=== PATIENT | male | born 1955 | race Caucasian/White ===

== ENCOUNTER 2016-12-14 08:34 | Inpatient (IN) | payer BC ==
[2016-12-14] MEDS ORDERED: FAMOTIDINE 10 MG/ML VIAL IV ONE ×2 (08:54→10:20)
[2016-12-14] MEDS ORDERED: oxyCODONE HCL/ACETAMINOPHEN 1 TAB TABLET PO ONE (08:54)
[2016-12-14] MEDS ORDERED: ONDANSETRON HCL/PF 2 MG/ML VIAL IV ONE (08:54)
[2016-12-14] MEDS ORDERED: ALBUTEROL SULFATE/IPRATROPIUM 3 ML NEBU IH ONE ×2 (08:54→10:19)
--- NOTE | 2016-12-14 08:54 | ERNOTE ---
Medical Problem HPI - Narrative Date of Service: 12/14/16 - General Chief Complaint: Flu Symptoms Time Seen by Provider: 12/14/16 08:45 Source: patient Exam Limitations: no limitations - Immun/Allergies/Home Medications Immunizations: IMMUNIZATION HX History of Influenza Vaccine Yes Hx Pneumococcal Vaccination No Allergies/Adverse Reactions: Allergies No Known Allergies Allergy (Verified 12/14/16 09:43) Home Medications: HOME MEDICATIONS Albuterol Sulfate [Albuterol Sulfate 2.5 MG/0.5ML] 1 vial IH Q4H PRN 12/14/16 [ Last Taken Unknown] Albuterol Sulfate [Proventil Hfa] 6.7 gm IH BID 12/14/16 [Last Taken Unknown] - History of Present History Narrative: Patient comes due to coughing, vomiting, and R side chest pain. Patient reported that his was found with Strep and Influenza. Patient's pain get worse with coughing, moving, and breathing. Timing: constant, intermittent - get worse with coughing Severity: moderate Modifying Factors - (Improves): Present: rest Modifying Factors - (Worsens): Present: movement, other - vomiting and coughing Review of Systems - Review of Systems Constitutional: Present: recent illness, fever, chills, weakness, malaise EYE: Present: no symptoms reported ENT: Present: sore throat, throat swelling Respiratory: Present: shortness of breath, cough Cardiology: Present: chest pain - R side of chest Gastrointestinal/Abdominal: Present: nausea, vomiting Genitourinary: Present: no symptoms reported Musculoskeletal: Present: muscle pain Skin: Absent: rash Neurological: Present: no symptoms reported Endocrine: Present: no symptoms reported Hematologic/Lymphatic: Present: no symptoms reported Psych: Present: no symptoms reported All Other Systems: All systems neg except as marked - Patient's Past Medical History Patient History - Medical: No pertinent hx Patient History - Cardiac/Respiratory: Asthma Patient History - Cancer: No Hx of Cancer Patient History - Surgical Procedures: Other Patient History - Other: None - Social History Living Situations: home Abuse History: No History of abuse Psych History: No pertinent hx Alcohol Use: none Drug Use: none - Immunizations Hx Pneumococcal Vaccination: No History of Influenza Vaccine: Yes Physical Exam - Physical Exam General Appearance: Present: alert, no apparent distress. Absent: anxious, thin , cachetic Eye Exam: Normal inspection: bilateral, PERRL: bilateral, EOMI: bilateral Ears, Nose, Throat: Present: normal ENT inspection, hearing grossly normal, pharyngeal erythema Neck: Present: normal inspection, nontender Respiratory: Present: no respiratory distress, no accessory muscle use, chest tenderness - R side reproduced by palpation, expiration (prolonged), rhonchi - scattered. Absent: respiratory distress, accessory muscle use, wheezing Cardiovascular/Chest: Present: regular rate, rhythm, no murmur, normal peripheral pulses Gastrointestinal/Abdominal: Present: normal bowel sounds, nontender, nondistended, soft, no organomegaly Back Exam: Present: normal inspection, normal range of motion, no CVA tenderness , no vertebral tenderness Extremity Exam: Present: normal inspection, non-tender, no edema, normal range of motion Neurological Exam: Present: alert, oriented, normal mood/affect, no motor/ sensory deficits Skin Exam: Present: normal color, warm/dry Lymphatic Exam: Present: no adenopathy ED Progress - Date and Time Seen: Date and Time: 12/14/16 10:55 Patient at the moment is feeling better and vomiting has been controlled. Patient has found with a pneumonia and 24K WBC. Patient will be given antibiotics and will be place in hospital. 12/14/16 11:[address] Booker has been call to office. 12/14/16 11:01 Case has been accepted by Dr. Booker. - Results and Orders Patient's Lab Results:: I have reviewed the patient's lab results. Results and Orders: CBC: 24K noticed Strep: Negative CMP: Negative Trop: Negative - Vital Signs Patient's Vital Signs:: I have reviewed the patient's vital signs. Vital Signs: Vital Signs 12/14/16 08:39 Temperature 37.3 C Pulse Rate 79 Respiratory 12 Rate Blood Pressure 141/67 O2 Sat by Pulse 94 Oximetry - EKG EKG: NSR EKG read: Interp. by me EKG Comments: HR: 84, [place] is normal, No ST Elevation - X-Ray X-Ray #1 X-Ray: chest X-ray Comments: R side pneumonia reported by radiologist. - Progress/Reassessment Chief Complaint: Flu Symptoms Progress:: Improved - Transfer of Care Expected Disposition: Admit Plan - Plan Plan: Patient will be place in hospital for treatment. Departure - Departure Clinical Impression: Pneumonia Qualifiers: Pneumonia type: due to unspecified organism Laterality: right Lung location: upper lobe of lung Qualified Code(s): J18.1 - Lobar pneumonia, unspecified organism Sepsis Qualifiers: Sepsis type: sepsis due to unspecified organism Qualified Code(s): A41.9 - Sepsis, unspecified organism Disposition: [facility] Condition: Serious
[2016-12-14 09:11] LABS: Hematocrit 42.4 % (42.0-52.0); Hemoglobin 15.1 gm/dL (13.5-18.0); Mean Cell Volume 92.8 fl (78-100); Mean Corpuscular Hgb Conc 35.6 g/dl (32-36); Mean Platelet Volume 9.6 fl (6.0-9.5); Platelet Count 245 K/mm3 (150-450); Red Blood Count 4.57 M/mm3 (4.7-6.0); Red Cell Distribution Width 12.8 % (11.5-14.0); White Blood Count 24.8 K/mm3 (4.0-10.5)
[2016-12-14 09:13] LABS: Total Cells Counted 100
[2016-12-14 09:26] LABS: Band 7 % (0-2.0); Basophil 1 % (0-1); Lymphocyte 8 % (20-51); Monocyte 11 % (0-9); Neutrophil 73 % (42-75); Neutrophil # 18.1 K/mm3 (1.3-6.0)
[2016-12-14 09:28] LABS: Dohle Bodies 2+; Tear Drop Cells 1+
[2016-12-14 09:29] LABS: RBC Morphology Normal (NORMAL)
[2016-12-14 09:30] LABS: Platelet Estimate Normal (NORMAL)
[2016-12-14 09:31] LABS: ALT 19 U/L (19-67); AST 10 U/L (0-48); Albumin * 3.7 gm/dl (3.4-5.0); Alkaline Phosphatase * 72 U/L (50-170); Anion Gap 17.4 mmol/L (6.8-13.8); BUN/Creatinine Ratio 10.6 (9.0-21.6); Bilirubin, Total 1.2 mg/dL (0.0-1.1); Blood Urea Nitrogen 11 mg/dL (6-23); Ca. Corrected For Albumin 8.9 mg/dL (8.4-10.2); Carbon Dioxide 22.1 mmol/L (24-32.6); Chloride 98 mmol/L (97-106); Glucose * 171 mg/dL (70-110); Potassium 3.5 mmol/L (3.4-4.6); Sodium 134 mmol/L (132-142); Total Protein 7.8 gm/dL (6.2-8.2); Toxic Granulation 1+; Troponin I Less than 0.017 ng/ml (0.00-0.10)
[2016-12-14] MEDS ORDERED: ONDANSETRON HCL/PF 2 MG/ML VIAL ONE (10:19)
[2016-12-14] MEDS ORDERED: oxyCODONE HCL/ACETAMINOPHEN 1 TAB TABLET ONE (10:19)
[2016-12-14] MEDS ORDERED: LEVOFLOXACIN/D5W 750 MG in Premix Bag 1 BAG IV ONE (10:47)
[2016-12-14] MEDS ORDERED: OSELTAMIVIR PHOSPHATE 75 MG CAPSULE PO ONE ×2 (10:51→11:03)
[2016-12-14] MEDS: NORMAL SALINE IV SCH ×3 (11:00→18:59)
[2016-12-14] MEDS ORDERED: FLU VACC QS2016-17 36MOS UP/PF 60 MCG/0.5 ML DISP.SYRIN IM ONE (12:07)
[2016-12-14] MEDS ORDERED: LEVOFLOXACIN IV ONE (12:30)
[2016-12-14] MEDS ORDERED: D5W IV ONE (12:30)
[2016-12-14] MEDS ORDERED: AZITHROMYCIN 250 MG TABLET PO STA (14:25)
[2016-12-14] MEDS: ALBUTEROL SULFATE 2.5 MG/0.5 ML VIAL.NEB IH PRN (14:56)
[2016-12-14] MEDS ORDERED: oxyCODONE HCL/ACETAMINOPHEN 1 TAB TABLET PO PRN ×2 (15:04→20:15)
[2016-12-14] MEDS ORDERED: ACETAMINOPHEN 325 MG TABLET PO PRN (15:04)
[2016-12-14] MEDS: ENOXAPARIN SODIUM 40 MG/0.4 ML SYRG SC SCH (15:13)
[2016-12-14] MEDS: ONDANSETRON HCL/PF 2 MG/ML VIAL IV PRN (18:07)
[2016-12-14] MEDS ORDERED: KETOROLAC TROMETHAMINE 30 MG/ML VIAL IV PRN (19:58)
--- NOTE | 2016-12-14 20:08 | HP ---
<Jumana King - Last Filed: 12/14/16 21:55> Chief Complaint - Chief Complaint Date of Service: 12/14/16 Time of Service: 20:04 Chief Complaint: "Dizziness, headaches, coughing, nausea". Source of HPI-Pt; reliable, ER provider report. History of Present Illness: Mr. Rivera is a 61-yr-old [facility] pt who has no pertinent medical history and lacks PCP. Pt states that he came up with URI symptoms involving nasal congestion and drainage about 2 weeks ago. He treated his symptoms with OTC medications. Then yesterday afternoon, he just 'felt ill and thought he was having stomach flu.' He states that he developed dizziness, headaches and vomiting. He stayed in bed most of the evening and slept through the night. This morning he was not feeling any better and so he chose to come to [facility] ER. He denies fevers, but says he's had chills. He has had occasional coughing and SOB. He complaints of RT rib cage pain which radiates to the back and is worsened with inspiration and expiration. He denies abd. pain and diarrhea. During evaluation at the ED, the CXR obtained showed consolidation on RT mid lung suggestive of Pneumonia. He was found to have Leukocytosis with a WBC of 24,800 and a low grade fever of 37.6. He will be admitted under observation status for Pneumonia. - Patient's Past Medical History Patient History - Medical: No pertinent hx Patient History - Cardiac/Respiratory: Asthma Patient History - Cancer: No Hx of Cancer Patient History - Surgical Procedures: Other Patient History - Other: None - Family History Father Family History - Cardiac/Respiratory: Asthma Family History - Cancer: Prostate Sister Family History - Cardiac/Respiratory: COPD Mother Family History - Medical: No pertinent hx - Social History Living Situations: home Abuse History: No History of abuse Psych History: No pertinent hx Smoking Status: Current every day smoker Have you smoked in the past 12 months: Yes Do you dip or chew tobacco: No Smoking Start Date: 12/14/74 Patient requests Smoking Cessation Consult: No Initiate information on Smoking Cessation: No Alcohol Use: none Drug Use: none - Immunizations Hx Pneumococcal Vaccination: No History of Influenza Vaccine: Yes Review Of Systems (GEN) - Review of Systems Generalized/Overall Review: Present: Chills, Malaise. Absent: Weakness, Fever EENTM: Present: Nose Congestion. Absent: Eye Pain, Double Vision, Throat Pain Respiratory: Present: Cough, Shortness of Breath Cardiac: Absent: Chest Pain, Palpitations, Syncope Abdominal: Present: Nausea, Vomiting. Absent: Abdominal Pain, Constipation Genitourinary: Absent: Burning, Frequency, Hematuria Musculoskeletal: Present: Back Pain. Absent: Joint Pain, Joint Swelling, Muscle Pain, Neck Pain Neurological: Absent: Headache, Anxiety, Weakness Skin: Present: Dryness. Absent: Lesions Endocrine: Present: Intolerance to Heat. Absent: Flushing, Increased Thirst Misc: All systems neg except as marked Allergies/Adverse Reactions: Allergies Allergy/AdvReac Type Severity Reaction Status Date / Time No Known Allergies Allergy Verified 12/14/16 09:43 Home Medications: HOME MEDICATIONS Albuterol Sulfate [Albuterol Sulfate 2.5 MG/0.5ML] 1 vial IH Q4H PRN 12/14/16 [ Last Taken Unknown] Albuterol Sulfate [Proventil Hfa] 6.7 gm IH BID 12/14/16 [Last Taken Unknown] Exam - Exam Vital Signs: Vital Signs - Last Taken Temp 36.8 C 12/14/16 19:40 Pulse 55 L 12/14/16 19:40 Resp 20 12/14/16 19:40 BP 164/80 12/14/16 19:40 Pulse Ox 99 12/14/16 19:40 Constitutional: Present: Alert, Oriented x3, Mild distress ENT Exam: Present: normal ENT inspection. Absent: nasal congestion, nasal drainage Eye Exam: bilateral eye: normal inspection, PERRL Neck: Present: full range of motion, supple, normal inspection Back Exam: Present: normal inspection, no CVA tenderness Breasts: Present: Exam deferred Respiratory: Present: no accessory muscle use, decreased breath sounds, No wheezing Cardiovascular/Chest: Present: normal peripheral pulses, regular rate, rhythm, no edema, no murmur Abdomen: Present: Normal bowel sounds, nontender, firm /Rectal: Present: Exam deferred Extremity: Present: non-tender, normal inspection Skin Exam: Present: warm/dry, no cyanosis Lymphatic: Present: no adenopathy Neurologic: Present: no motor/sensory deficits, alert, oriented x 3, dizzy/light -headedness Appearance: Present: appropriate appearance, appropriate insight Eye contact: Present: cooperative, good eye contact, normal speech Thoughts: Present: normal thought pattern, no apparent hallucination Diagnostic Studies: Laboratory Results WBC 24.8 K/mm3 (4.0-10.5) H 12/14/16 09:00 RBC 4.57 M/mm3 (4.7-6.0) L 12/14/16 09:00 Hgb 15.1 gm/dL (13.5-18.0) 12/14/16 09:00 Hct 42.4 % (42.0-52.0) 12/14/16 09:00 MCV 92.8 fl (78-100) 12/14/16 09:00 MCH 33.0 pg (27-31) H 12/14/16 09:00 MCHC 35.6 g/dl (32-36) 12/14/16 09:00 RDW 12.8 % (11.5-14.0) 12/14/16 09:00 Plt Count 245 K/mm3 (150-450) 12/14/16 09:00 MPV 9.6 fl (6.0-9.5) H 12/14/16 09:00 Neutrophils % (Manual) 73 % (42-75) 12/14/16 09:00 Band Neuts % (Manual) 7 % (0-2.0) H 12/14/16 09:00 Lymphocytes % (Manual) 8 % (20-51) L 12/14/16 09:00 Monocytes % (Manual) 11 % (0-9) H 12/14/16 09:00 Basophils % (Manual) 1 % (0-1) 12/14/16 09:00 Neutrophils # (Manual) 18.1 K/mm3 (1.3-6.0) H 12/14/16 09:00 Lymphocytes # (Manual) 2.0 k/mm3 (1.5-3.5) 12/14/16 09:00 Monocytes # (Manual) 2.7 k/mm3 (0.0-1.0) H 12/14/16 09:00 Basophils # (Manual) 0.2 k/mm3 (0.0-0.1) H 12/14/16 09:00 Toxic Granulation 1+ 12/14/16 09:00 Toxic Vacuolation 1+ 12/14/16 09:00 Dohle Bodies 2+ 12/14/16 09:00 Platelet Estimate Normal (NORMAL) 12/14/16 09:00 RBC Morphology Normal (NORMAL) 12/14/16 09:00 Tear Drop Cells 1+ 12/14/16 09:00 Sodium 134 mmol/L (132-142) 12/14/16 09:00 Plasma Sodium 135 mmol/L (130-142) 12/14/16 09:00 Potassium 3.5 mmol/L (3.4-4.6) 12/14/16 09:00 Chloride 98 mmol/L (97-106) 12/14/16 09:00 Carbon Dioxide 22.1 mmol/L (24-32.6) L 12/14/16 09:00 Anion Gap 17.4 mmol/L (6.8-13.8) H 12/14/16 09:00 BUN 11 mg/dL (6-23) 12/14/16 09:00 Creatinine 1.04 mg/dL (0.4-1.4) 12/14/16 09:00 Est GFR (Non-Af Amer) 78 mL/min (60-130) 12/14/16 09:00 BUN/Creatinine Ratio 10.6 (9.0-21.6) 12/14/16 09:00 Random Glucose 171 mg/dL (70-110) H 12/14/16 09:00 Lactic Acid, Venous 1.5 mmol/L (0.4-2.0) 12/14/16 11:00 Calcium 9.0 mg/dL (7.9-10.9) 12/14/16 09:00 Calcium Adj for Albumin 8.9 mg/dL (8.4-10.2) 12/14/16 09:00 Total Bilirubin 1.2 mg/dL (0.0-1.1) H 12/14/16 09:00 AST 10 U/L (0-48) 12/14/16 09:00 ALT 19 U/L (19-67) 12/14/16 09:00 Alkaline Phosphatase 72 U/L (50-170) 12/14/16 09:00 Troponin I Less than 0.017 ng/ml (0.00-0.10) 12/14/16 09:00 Total Protein 7.8 gm/dL (6.2-8.2) 12/14/16 09:00 Albumin 3.7 gm/dl (3.4-5.0) 12/14/16 09:00 Influenza Type A Ag Negative (NEGATIVE) 12/14/16 10:55 Influenza Type B Ag Negative (NEGATIVE) 12/14/16 10:55 Group A Strep Rapid Negative (NEGATIVE) 12/14/16 09:00 Assessment/Plan - Assessment/Plan (1) Pneumonia Assessment: Mr. Rivera is noted to have clinical features involving: chills, Leukocytosis on CBC, Chest pain and cough. Chest imaging showed consolidation on RT mid lung. Blood and sputum cultures are pending. Rocephin & Azthromycin sufficient for now. Will check urinary antigen testing for Strep Pneumo and Legionella. Encourage cornet q 2 hrs, early mobilization, and administer Influenza & Pneumococcal Vaccine. Monitor CBC in am. Problem: Acute QualifierTitle: Pneumonia type: due to unspecified organism Laterality: right Lung location: middle lobe of lung Qualified Code(s): J18.1 - Lobar pneumonia, unspecified organism (2) Pleuritic chest pain Assessment: The EKG and Troponin was negative for ACS/IN. His pleuritic chest pain is likely related to cause CAP vs Pulmonary embolism - No sudden SOB, tachypnea or tachycardia. Will utilize prn analgesics for pain. Problem: Acute (3) Asthma Assessment: Stable- Utilize PRN Albuterol Neb Treatments. Problem: Chronic (4) Leukocytosis Assessment: Was negative for influenza screening. Lactic acid in NR. On antibiotics. CBC in am. Problem: Acute (5) Nicotine dependence Assessment: Is a current smoker-1 ppd x 40 yrs. Offer smoking cessation teaching. declines nicotine patch due to a previous rash developemt. Has nicorette gum. Problem: Chronic QualifierTitle: Nicotine product type: cigarettes <Fernando Lemus - Last Filed: 12/15/16 17:37> Immunizations: IMMUNIZATION HX History of Influenza Vaccine Yes Hx Pneumococcal Vaccination No Exam - Exam Vital Signs: Vital Signs - Last Taken Temp 36.5 C 12/15/16 14:26 Pulse 66 12/15/16 14:26 Resp 18 12/15/16 14:26 BP 158/71 12/15/16 14:26 Pulse Ox 96 12/15/16 14:26 Diagnostic Studies: Abnormal Lab Results 12/15/16 12/15/16 Range/Units 00:51 05:15 WBC 13.5 H D (4.0-10.5) K/mm3 RBC 4.03 L (4.7-6.0) M/mm3 Hgb 13.3 L (13.5-18.0) gm/dL Hct 38.3 L (42.0-52.0) % MCH 33.0 H (27-31) pg MPV 9.6 H (6.0-9.5) fl Immature Gran # (Auto) 0.06 H (0.000-0.0310) K/mm3 Neutrophils % 75.9 H (42-75.0) % Lymphocytes % 15.0 L (20-51) % Neutrophils # 10.3 H (1.3-6.0) K/mm3 Monocytes # 1.1 H (0.0-1.0) k/mm3 Potassium 3.3 L (3.4-4.6) mmol/L Carbon Dioxide 23.1 L (24-32.6) mmol/L Random Glucose 136 H (70-110) mg/dL Microbiology 12/15/16 05:16 Sputum Culture - Preliminary Expectorate Sputum Laboratory Results WBC 13.5 K/mm3 (4.0-10.5) H D 12/15/16 05:15 RBC 4.03 M/mm3 (4.7-6.0) L 12/15/16 05:15 Hgb 13.3 gm/dL (13.5-18.0) L 12/15/16 05:15 Hct 38.3 % (42.0-52.0) L 12/15/16 05:15 MCV 95.0 fl (78-100) 12/15/16 05:15 MCH 33.0 pg (27-31) H 12/15/16 05:15 MCHC 34.7 g/dl (32-36) 12/15/16 05:15 RDW 12.8 % (11.5-14.0) 12/15/16 05:15 Plt Count 193 K/mm3 (150-450) 12/15/16 05:15 MPV 9.6 fl (6.0-9.5) H 12/15/16 05:15 Immature Gran % (Auto) 0.40 % (0.001-0.429) 12/15/16 05:15 Immature Gran # (Auto) 0.06 K/mm3 (0.000-0.0310) H 12/15/16 05:15 Neutrophils % 75.9 % (42-75.0) H 12/15/16 05:15 Neutrophils % (Manual) 73 % (42-75) 12/14/16 09:00 Band Neuts % (Manual) 7 % (0-2.0) H 12/14/16 09:00 Lymphocytes % 15.0 % (20-51) L 12/15/16 05:15 Lymphocytes % (Manual) 8 % (20-51) L 12/14/16 09:00 Monocytes % 8.1 % (0.0-9) 12/15/16 05:15 Monocytes % (Manual) 11 % (0-9) H 12/14/16 09:00 Eosinophils % 0.3 % (0.0-3.0) 12/15/16 05:15 Basophils % 0.3 % (0.0-1.0) 12/15/16 05:15 Basophils % (Manual) 1 % (0-1) 12/14/16 09:00 Nucleated RBC % 0.0 k/mm3 (0-1) 12/15/16 05:15 Neutrophils # 10.3 K/mm3 (1.3-6.0) H 12/15/16 05:15 Neutrophils # (Manual) 18.1 K/mm3 (1.3-6.0) H 12/14/16 09:00 Lymphocytes # 2.0 k/mm3 (1.5-3.5) 12/15/16 05:15 Lymphocytes # (Manual) 2.0 k/mm3 (1.5-3.5) 12/14/16 09:00 Monocytes # 1.1 k/mm3 (0.0-1.0) H 12/15/16 05:15 Monocytes # (Manual) 2.7 k/mm3 (0.0-1.0) H 12/14/16 09:00 Eosinophils # 0.0 k/mm3 (0.0-0.7) 12/15/16 05:15 Basophils # (Manual) 0.2 k/mm3 (0.0-0.1) H 12/14/16 09:00 Absolute Basophils 0.0 k/mm3 (0.0-0.1) 12/15/16 05:15 Toxic Granulation 1+ 12/14/16 09:00 Toxic Vacuolation 1+ 12/14/16 09:00 Dohle Bodies 2+ 12/14/16 09:00 Platelet Estimate Normal (NORMAL) 12/14/16 09:00 RBC Morphology Normal (NORMAL) 12/14/16 09:00 Tear Drop Cells 1+ 12/14/16 09:00 Sodium 136 mmol/L (132-142) 12/15/16 00:51 Plasma Sodium 137 mmol/L (130-142) 12/15/16 00:51 Potassium 3.3 mmol/L (3.4-4.6) L 12/15/16 00:51 Chloride 103 mmol/L (97-106) 12/15/16 00:51 Carbon Dioxide 23.1 mmol/L (24-32.6) L 12/15/16 00:51 Anion Gap 13.2 mmol/L (6.8-13.8) 12/15/16 00:51 BUN 13 mg/dL (6-23) 12/15/16 00:51 Creatinine 0.81 mg/dL (0.4-1.4) 12/15/16 00:51 Est GFR (Non-Af Amer) 104 mL/min (60-130) D 12/15/16 00:51 BUN/Creatinine Ratio 16.0 (9.0-21.6) 12/15/16 00:51 Random Glucose 136 mg/dL (70-110) H 12/15/16 00:51 Lactic Acid, Venous 1.5 mmol/L (0.4-2.0) 12/14/16 11:00 Calcium 8.4 mg/dL (7.9-10.9) 12/15/16 00:51 Calcium Adj for Albumin 8.9 mg/dL (8.4-10.2) 12/14/16 09:00 Total Bilirubin 1.2 mg/dL (0.0-1.1) H 12/14/16 09:00 AST 10 U/L (0-48) 12/14/16 09:00 ALT 19 U/L (19-67) 12/14/16 09:00 Alkaline Phosphatase 72 U/L (50-170) 12/14/16 09:00 Troponin I Less than 0.017 ng/ml (0.00-0.10) 12/14/16 09:00 Total Protein 7.8 gm/dL (6.2-8.2) 12/14/16 09:00 Albumin 3.7 gm/dl (3.4-5.0) 12/14/16 09:00 Influenza Type A Ag Negative (NEGATIVE) 12/14/16 10:55 Influenza Type B Ag Negative (NEGATIVE) 12/14/16 10:55 Group A Strep Rapid Negative (NEGATIVE) 12/14/16 09:00 Assessment/Plan - Narrative Narrative: I reviewed the record and examined the patient. I personally directed all of [facility]'s care for the patient. We will give toradol routinely to help with the right sided chest pain. I estimate he will need hospitalization for at least several days. He is significantly dyspneic even at rest.
[2016-12-14] MEDS ORDERED: PNEUMOC 13-VAL CONJ-DIP CRM/PF 0.5 ML DISP.SYRIN IM ONE (20:17)
[2016-12-14] MEDS ORDERED: NICOTINE 21 MG PATC TD SCH (20:45)
[2016-12-14] MEDS: KETOROLAC TROMETHAMINE 30 MG/ML VIAL IV SCH (20:53)
[2016-12-15] MEDS: ALBUTEROL SULFATE 2.5 MG/0.5 ML VIAL.NEB IH PRN ×3 (03:39→22:47)
[2016-12-15] MEDS: KETOROLAC TROMETHAMINE 30 MG/ML VIAL IV SCH ×3 (04:34→15:36)
[2016-12-15] MEDS ORDERED: NORMAL SALINE 1,000 ML IV PRN (04:42)
[2016-12-15] MEDS: ONDANSETRON HCL/PF 2 MG/ML VIAL IV PRN (04:45)
[2016-12-15 05:23] LABS: Hematocrit 38.3 % (42.0-52.0); Hemoglobin 13.3 gm/dL (13.5-18.0); Mean Corpuscular Hgb Conc 34.7 g/dl (32-36); Mean Platelet Volume 9.6 fl (6.0-9.5); Neutrophil # 10.3 K/mm3 (1.3-6.0); Neutrophil % 75.9 % (42-75.0); Platelet Count 193 K/mm3 (150-450); Red Blood Count 4.03 M/mm3 (4.7-6.0); Red Cell Distribution Width 12.8 % (11.5-14.0); White Blood Count 13.5 K/mm3 (4.0-10.5)
[2016-12-15 05:43] LABS: Anion Gap 13.2 mmol/L (6.8-13.8); Calcium * 8.4 mg/dL (7.9-10.9); Carbon Dioxide 23.1 mmol/L (24-32.6); Potassium 3.3 mmol/L (3.4-4.6)
[2016-12-15] MEDS: NORMAL SALINE IV SCH ×4 (06:26→13:34)
--- NOTE | 2016-12-15 06:49 | PN ---
<Jumana King - Last Filed: 12/15/16 07:04> Subjective - Date and Time Seen Date: 12/15/16 Time: 06:45 Subjective Narrative: Mr. Rivera had uneventful night. Reports Toradol helps with the pleuritic pain. Vomited once in the night. Complaints of night sweats. No other issues according to nursing. Objective - Vitals Vitals: Last Vital Signs Temp 36.7 C 12/15/16 03:55 Pulse 64 12/15/16 03:55 Resp 24 H 12/15/16 03:55 BP 150/75 12/15/16 03:55 Pulse Ox 95 12/15/16 03:55 - Abnormal Lab Findings Abnormal Lab Findings: Abnormal Lab Results 12/15/16 12/15/16 Range/Units 00:51 05:15 WBC 13.5 H D (4.0-10.5) K/mm3 RBC 4.03 L (4.7-6.0) M/mm3 Hgb 13.3 L (13.5-18.0) gm/dL Hct 38.3 L (42.0-52.0) % MCH 33.0 H (27-31) pg MPV 9.6 H (6.0-9.5) fl Immature Gran # (Auto) 0.06 H (0.000-0.0310) K/mm3 Neutrophils % 75.9 H (42-75.0) % Lymphocytes % 15.0 L (20-51) % Neutrophils # 10.3 H (1.3-6.0) K/mm3 Monocytes # 1.1 H (0.0-1.0) k/mm3 Potassium 3.3 L (3.4-4.6) mmol/L Carbon Dioxide 23.1 L (24-32.6) mmol/L Random Glucose 136 H (70-110) mg/dL - Exam Constitutional: Present: Alert, Oriented x3, No distress ENT Exam: Present: normal ENT inspection, hearing grossly normal Neck: Present: full range of motion, supple, normal inspection Breasts: Present: Exam deferred Respiratory: Present: lungs clear, no accessory muscle use, No wheezing Cardiovascular/Chest: Present: normal peripheral pulses, regular rate, rhythm, no edema, no murmur Abdomen: Present: Normal bowel sounds, soft, nontender /Rectal: Present: Exam deferred Extremity: Present: normal range of motion, non-tender, normal inspection Skin Exam: Present: warm/dry, no cyanosis Lymphatic: Present: no adenopathy Neurologic: Present: no motor/sensory deficits, alert, oriented x 3 Appearance: Present: appropriate appearance, appropriate insight Eye contact: Present: cooperative, good eye contact, normal speech Thoughts: Present: normal thought pattern, no apparent hallucination Assessment/Plan - Problems/Diagnosis (1) Pneumonia Problem: Acute QualifierTitle: Pneumonia type: due to unspecified organism Laterality: right Lung location: middle lobe of lung Qualified Code(s): J18.1 - Lobar pneumonia, unspecified organism Narrative: Mr. Rivera is noted to have clinical features involving: chills, Leukocytosis on CBC, Chest pain and cough. Chest imaging showed consolidation on RT mid lung. Blood and sputum cultures are pending. Rocephin & Azthromycin sufficient for now. Will check urinary antigen testing for Strep Pneumo and Legionella. Encourage cornet q 2 hrs, early mobilization, and administer Influenza & Pneumococcal Vaccine. Monitor CBC in am. (2) Pleuritic chest pain Problem: Acute Narrative: The EKG and Troponin was negative for ACS/[place]. His pleuritic chest pain is likely related to CAP vs Pulmonary embolism - No sudden SOB, tachypnea or tachycardia. Will utilize prn analgesics for pain. (3) Asthma Problem: Chronic Narrative: Stable- Utilize PRN Albuterol Neb Treatments. (4) Leukocytosis Problem: Acute Narrative: Was negative for influenza screening. Lactic acid in NR. On antibiotics. CBC in am. (5) Nicotine dependence Problem: Chronic QualifierTitle: Nicotine product type: cigarettes Narrative: is a current smoker-1 ppd x 40 yrs. Offer smoking cessation teaching. declines nicotine patch due to a previous rash developemt. Has nicorette gum. (6) Hypokalemia Problem: Acute Narrative: Oral replenishment. BMP in am <Fernando Lemus - Last Filed: 12/15/16 17:39> Objective - Vitals Vitals: Last Vital Signs Temp 36.5 C 12/15/16 14:26 Pulse 66 12/15/16 14:26 Resp 18 12/15/16 14:26 BP 158/71 12/15/16 14:26 Pulse Ox 96 12/15/16 14:26 - Abnormal Lab Findings Abnormal Lab Findings: Abnormal Lab Results 12/15/16 12/15/16 Range/Units 00:51 05:15 WBC 13.5 H D (4.0-10.5) K/mm3 RBC 4.03 L (4.7-6.0) M/mm3 Hgb 13.3 L (13.5-18.0) gm/dL Hct 38.3 L (42.0-52.0) % MCH 33.0 H (27-31) pg MPV 9.6 H (6.0-9.5) fl Immature Gran # (Auto) 0.06 H (0.000-0.0310) K/mm3 Neutrophils % 75.9 H (42-75.0) % Lymphocytes % 15.0 L (20-51) % Neutrophils # 10.3 H (1.3-6.0) K/mm3 Monocytes # 1.1 H (0.0-1.0) k/mm3 Potassium 3.3 L (3.4-4.6) mmol/L Carbon Dioxide 23.1 L (24-32.6) mmol/L Random Glucose 136 H (70-110) mg/dL Assessment/Plan Plan Narrative: I reviewed the record and examined the patient. I personally directed Jumana King's care for the patient. He feels better, but is still significant SOB even at rest. I estimate a hospital stay of at least a few more days.
[2016-12-15] MEDS ORDERED: POTASSIUM CHLORIDE 20 MEQ TABLET.SA PO ONE (07:00)
[2016-12-15] MEDS: AZITHROMYCIN 250 MG TABLET PO SCH (10:05)
[2016-12-15] MEDS: POTASSIUM CHLORIDE 40 MEQ in NORMAL SALINE 1,000 ML IV SCH ×2 (13:17→21:19)
[2016-12-15] MEDS: ENOXAPARIN SODIUM 40 MG/0.4 ML SYRG SC SCH (15:36)
[2016-12-15] MEDS ORDERED: POLYETHYLENE GLYCOL 3350 119 GM BTL PO ONE (22:00)
[2016-12-16] MEDS: POTASSIUM CHLORIDE 40 MEQ in NORMAL SALINE 1,000 ML IV SCH ×3 (05:26→21:38)
[2016-12-16] MEDS: KETOROLAC TROMETHAMINE 30 MG/ML VIAL IV SCH ×5 (05:48→21:39)
[2016-12-16 06:01] LABS: Hematocrit 35.4 % (42.0-52.0); Hemoglobin 12.2 gm/dL (13.5-18.0); Mean Cell Volume 96.7 fl (78-100); Mean Corpuscular Hemoglobin 33.3 pg (27-31); Mean Corpuscular Hgb Conc 34.5 g/dl (32-36); Mean Platelet Volume 10.4 fl (6.0-9.5); Platelet Count 213 K/mm3 (150-450); Red Blood Count 3.66 M/mm3 (4.7-6.0); Red Cell Distribution Width 13.2 % (11.5-14.0); White Blood Count 7.5 K/mm3 (4.0-10.5)
[2016-12-16 06:07] LABS: Total Cells Counted 100
[2016-12-16 06:16] LABS: Anion Gap 12.8 mmol/L (6.8-13.8); BUN/Creatinine Ratio 17.3 (9.0-21.6); Carbon Dioxide 23.6 mmol/L (24-32.6); Estimated Creat Clear 102.6; Potassium 4.4 mmol/L (3.4-4.6)
[2016-12-16 06:50] LABS: Eosinophil 1 % (0-3); Giant Platelets Trace; Immature Granulocyte 1 (0-1); Lymphocyte 42 % (20-51); Monocyte 4 % (0-9); Neutrophil 52 % (42-75); Neutrophil # 3.9 K/mm3 (1.3-6.0); Platelet Estimate Normal (NORMAL); RBC Morphology Normal (NORMAL)
[2016-12-16] MEDS: ALBUTEROL SULFATE 2.5 MG/0.5 ML VIAL.NEB IH PRN ×3 (07:19→20:27)
[2016-12-16] MEDS: POLYETHYLENE GLYCOL 3350 119 GM BTL PO SCH (09:38)
[2016-12-16] MEDS: AZITHROMYCIN 250 MG TABLET PO SCH (09:39)
[2016-12-16] MEDS ORDERED: MAGNESIUM HYDROXIDE 30 ML UDC PO PRN (10:05)
--- NOTE | 2016-12-16 12:48 | PN ---
Subjective - Date and Time Seen Date: 12/16/16 Time: 06:50 Subjective Narrative: Improving. Less pain. Less cough. Still weak. More active. Constipated Objective - Review of Systems Generalized/Overall Review: Reports: Malaise, Fatigue EENTM: Reports: No Symptoms Reported Respiratory: Reports: Cough, Shortness of Breath, Orthopnea, Wheezing Cardiac: Reports: No Symptoms Reported Abdominal: Reports: Constipation Genitourinary Symptoms: Reports: No Symptoms Reported Musculoskeletal Complaints: Reports: No Symptoms Reported Neurological: Reports: No Symptoms Reported Skin: Reports: No Symptoms Reported Endocrine: Reports: No Symptoms Reported Misc: All systems neg except as marked - Vitals Vitals: Last Vital Signs Selected Entries 12/16/16 06:41 Temperature 37.0 C Temperature Axillary Source Pulse Rate 57 L Respiratory 18 Rate Respiratory Normal Depth Blood Pressure 149/85 Blood Pressure Sitting Position O2 Sat by Pulse 97 Oximetry - Abnormal Lab Findings Abnormal Lab Findings: Abnormal Lab Results 12/16/16 12/16/16 Range/Units 05:29 05:29 RBC 3.66 L (4.7-6.0) M/mm3 Hgb 12.2 L (13.5-18.0) gm/dL Hct 35.4 L (42.0-52.0) % MCH 33.3 H (27-31) pg MPV 10.4 H (6.0-9.5) fl Chloride 109 H (97-106) mmol/L Carbon Dioxide 23.6 L (24-32.6) mmol/L - Exam Constitutional: Present: Alert, Oriented x3, Cooperative, Well developed, Well nourished, No distress ENT Exam: Present: normal ENT inspection, hearing grossly normal, pharynx normal Neck: Present: normal inspection Respiratory: Present: lungs clear, no respiratory distress Cardiovascular/Chest: Present: regular rate, rhythm, no murmur Abdomen: Present: Normal bowel sounds, soft, nontender, nondistended, no rebound tenderness, no hepatospenomegaly, no masses Extremity: Present: normal range of motion, non-tender, normal inspection Skin Exam: Present: normal color, warm/dry, no cyanosis Neurologic: Present: alert, oriented x 3 Appearance: Present: appropriate appearance, appropriate insight, neat, no memory impairment Eye contact: Present: cooperative, good eye contact, normal speech Thoughts: Present: normal thought pattern Assessment/Plan Plan Narrative: MOM. Follow labs. Continue IV antibiotics. - Problems/Diagnosis (1) Pneumococcal pneumonia Problem: Acute Qualifiers: Laterality: right (2) Pneumococcal sepsis Problem: Acute (3) Constipation due to pain medication Problem: Acute (4) Pleuritic chest pain Problem: Acute (5) Sepsis Problem: Acute Qualifiers: Sepsis type: Pneumococcus Qualified Code(s): A40.3 - Sepsis due to Streptococcus pneumoniae (6) Asthma Problem: Chronic (7) Nicotine dependence Problem: Chronic Qualifiers: Nicotine product type: cigarettes
[2016-12-16] MEDS: ENOXAPARIN SODIUM 40 MG/0.4 ML SYRG SC SCH (15:38)
[2016-12-17] MEDS: KETOROLAC TROMETHAMINE 30 MG/ML VIAL IV SCH ×3 (03:16→16:32)
[2016-12-17] MEDS: ALBUTEROL SULFATE 2.5 MG/0.5 ML VIAL.NEB IH PRN ×4 (03:30→19:59)
[2016-12-17] MEDS: POTASSIUM CHLORIDE 40 MEQ in NORMAL SALINE 1,000 ML IV SCH ×2 (05:43→14:42)
[2016-12-17] MEDS: POLYETHYLENE GLYCOL 3350 119 GM BTL PO SCH (09:52)
[2016-12-17] MEDS: AZITHROMYCIN 250 MG TABLET PO SCH (09:54)
[2016-12-17] MEDS: ENOXAPARIN SODIUM 40 MG/0.4 ML SYRG SC SCH (14:39)
--- NOTE | 2016-12-17 15:56 | PN ---
Subjective - Date and Time Seen Date: 12/17/16 Time: 15:52 Subjective Narrative: Improving. NO pain. Less cough. Still weak. More active. Constipated. Objective - Review of Systems Generalized/Overall Review: Reports: Malaise EENTM: Reports: No Symptoms Reported Respiratory: Reports: Cough, Shortness of Breath Cardiac: Reports: No Symptoms Reported Abdominal: Reports: Constipation Genitourinary Symptoms: Reports: No Symptoms Reported Musculoskeletal Complaints: Reports: No Symptoms Reported Neurological: Reports: No Symptoms Reported Skin: Reports: No Symptoms Reported Endocrine: Reports: No Symptoms Reported Misc: All systems neg except as marked - Vitals Vitals: Last Vital Signs Selected Entries 12/17/16 14:00 Temperature 36.3 C L Temperature Oral Source Pulse Rate 75 Respiratory 18 Rate Respiratory Normal Depth Blood Pressure 176/86 Blood Pressure Sitting Position O2 Sat by Pulse 97 Oximetry Oxygen Delivery Room Air Method - Exam Constitutional: Present: Alert, Oriented x3, Cooperative, Well developed, Well nourished, No distress ENT Exam: Present: normal ENT inspection, hearing grossly normal Neck: Present: normal inspection Respiratory: Present: rhonchi, wheezing Cardiovascular/Chest: Present: regular rate, rhythm, no murmur Abdomen: Present: Normal bowel sounds, soft, nontender, nondistended, no rebound tenderness, no hepatospenomegaly, no masses Extremity: Present: normal inspection, no pedal edema Skin Exam: Present: normal color, warm/dry, no cyanosis Neurologic: Present: alert, oriented x 3 Appearance: Present: appropriate appearance, appropriate insight Eye contact: Present: cooperative, good eye contact, normal speech Thoughts: Present: normal thought pattern Assessment/Plan Plan Narrative: IV antibiotics. Laxatives. Saline lock. Follow labs. - Problems/Diagnosis (1) Pneumococcal pneumonia Problem: Acute Qualifiers: Laterality: right (2) Pneumococcal sepsis Problem: Acute (3) Constipation due to pain medication Problem: Acute (4) Pleuritic chest pain Problem: Acute (5) Sepsis Problem: Acute Qualifiers: Sepsis type: Pneumococcus Qualified Code(s): A40.3 - Sepsis due to Streptococcus pneumoniae (6) Asthma Problem: Chronic (7) Nicotine dependence Problem: Chronic Qualifiers: Nicotine product type: cigarettes
[2016-12-17] MEDS: MAGNESIUM HYDROXIDE 30 ML UDC PO SCH (16:35)
[2016-12-17] MEDS: ENALAPRIL MALEATE 20 MG TABLET PO SCH (21:18)
[2016-12-18 04:21] VITALS: BP 157/72
[2016-12-18 05:09] LABS: Mean Corpuscular Hgb Conc 33.3 g/dl (32-36); Mean Platelet Volume 10.5 fl (6.0-9.5); Neutrophil # 4.5 K/mm3 (1.3-6.0); Neutrophil % 51.7 % (42-75.0); Platelet Count 266 K/mm3 (150-450); Red Blood Count 3.94 M/mm3 (4.7-6.0); Red Cell Distribution Width 13.2 % (11.5-14.0); White Blood Count 8.7 K/mm3 (4.0-10.5)
[2016-12-18 05:15] LABS: Anion Gap 15.3 mmol/L (6.8-13.8); BUN/Creatinine Ratio 9.7 (9.0-21.6); Calcium * 8.6 mg/dL (7.9-10.9); Carbon Dioxide 22.8 mmol/L (24-32.6); Estimated Creat Clear 106.9; Potassium 4.1 mmol/L (3.4-4.6)
[2016-12-18] MEDS: ALBUTEROL SULFATE 2.5 MG/0.5 ML VIAL.NEB IH PRN ×2 (05:16→09:16)
[2016-12-18] MEDS: KETOROLAC TROMETHAMINE 30 MG/ML VIAL IV SCH ×3 (08:45→11:58)
[2016-12-18] MEDS: POLYETHYLENE GLYCOL 3350 119 GM BTL PO SCH (08:45)
[2016-12-18] MEDS: MAGNESIUM HYDROXIDE 30 ML UDC PO SCH (08:45)
[2016-12-18] MEDS: ENALAPRIL MALEATE 20 MG TABLET PO SCH (08:46)
[2016-12-18] MEDS: AZITHROMYCIN 250 MG TABLET PO SCH (08:47)
--- NOTE | 2016-12-18 11:25 | DS ---
(1) Pneumococcal pneumonia Problem: Acute Qualifiers: Laterality: right Lung location: upper lobe of lung Qualified Code(s): J13 - Pneumonia due to Streptococcus pneumoniae (2) Pneumococcal sepsis Problem: Acute (3) Constipation due to pain medication Problem: Acute (4) Pleuritic chest pain Problem: Acute (5) Asthma Problem: Chronic (6) Nicotine dependence Problem: Chronic Qualifiers: Nicotine product type: cigarettes (7) Hypertension Problem: Chronic Qualifiers: Hypertension type: essential hypertension Qualified Code(s): I10 - Essential (primary) hypertension Description of Stay: Steady improvement. Off supplemental O2. Minimally SOB at rest. Lungs clear. Plans to stop smoking. Procedures Performed: none Discharge Disposition: Home self care Disposition: Home self-care Condition: Good Discharge Activity: Activity as tolerated Discharge Diet: General/regular food Problem Oriented Discharge Instructions to Patient/Family: Community-Acquired Pneumonia, Adult, [id number], Hypertension, [id number], Managing Your High Blood Pressure Additional Patient Instructions (free text): CBC, BMP, TSH, free T4, Lipids, Hgb A1C blood tests in 1 week. CXR in two weeks. Appt. Dr. Bishop in 1 week. Prescriptions (Any new or edited meds): Cefuroxime Axetil [Ceftin] 500 mg PO BID #30 tab Enalapril Maleate [Vasotec] 20 mg PO BID #60 tablet Magnesium Hydroxide [Milk Of Magnesia] 30 ml PO TID PRN #1 bottle PRN Reason: constipation Naproxen Sodium [Anaprox Ds] 550 mg PO BID PRN #30 tab PRN Reason: Pain not relieved by tylenol Polyethylene Glycol 3350 [Miralax] 17 gm PO DAILY #1 btl Complete Home Medications List: Complete Home Medication List: Albuterol Sulfate [Proventil Hfa] 6.7 gm IH BID 12/14/16 Acetaminophen [Tylenol] 650 mg PO QID PRN #0 tablet 12/18/16 Cefuroxime Axetil [Ceftin] 500 mg PO BID #30 tab 12/18/16 Enalapril Maleate [Vasotec] 20 mg PO BID #60 tablet 12/18/16 Magnesium Hydroxide [Milk Of Magnesia] 30 ml PO TID PRN #1 bottle 12/18/16 Naproxen Sodium [Anaprox Ds] 550 mg PO BID PRN #30 tab 12/18/16 Polyethylene Glycol 3350 [Miralax] 17 gm PO DAILY #1 btl 12/18/16
[2016-12-18] MEDS ORDERED: PNEUMOC 13-VAL CONJ-DIP CRM/PF 0.5 ML DISP.SYRIN IM ONE (12:30)
[2016-12-18] MEDS ORDERED: FLU VACC QS2016-17 36MOS UP/PF 60 MCG/0.5 ML DISP.SYRIN IM ONE (12:30)
== END 2016-12-18 12:30 | disposition home or self-care (01) | DRG 871 ==
LOC: ER 08:34 → MS 11:08
PROVIDERS: ADMIT Allergy & Immunology; ATTEND Allergy & Immunology
DX: A41.52 Sepsis due to Pseudomonas (principal); J13 Pneumonia due to Streptococcus pneumoniae; I10 Essential (primary) hypertension; J45.909 Unspecified asthma, uncomplicated; D72.829 Elevated white blood cell count, unspecified; K59.03 Drug induced constipation; T40.2X5A Adverse effect of other opioids, initial encounter; F17.210 Nicotine dependence, cigarettes, uncomplicated; Z23 Encounter for immunization
CPT/HCPCS: 36415; 71020; 80048; 80053; 83605; 84484; 85007; 85025; 87040; 87070; 87081; 87184; 87400; 87430; 87449; 90686; 93005; 94640; 96365; 96375; 99284; G0008; G0009

== ENCOUNTER 2017-08-27 20:17 | Emergency (ER) | payer BC ==
[2017-08-27] MEDS ORDERED: ALBUTEROL SULFATE/IPRATROPIUM 3 ML NEBU IH ONE ×2 (20:54→21:04)
[2017-08-27] MEDS ORDERED: METHYLPREDNISOLONE SOD SUCC/PF 40 MG/ML VIAL IM ONE (20:55)
--- NOTE | 2017-08-27 20:59 | ERNOTE ---
Date of Service: 08/27/17 Time Seen by Provider: 08/27/17 20:43 Stated Complaint: COUGH, CONGESTION, LOST VOICE Presenting Symptoms:: cough, other - Dyspnea Source: patient, family Exam Limitations: no limitations Immunizations: IMMUNIZATION HX Immunizations Up to Date Yes History of Influenza Vaccine Yes Hx Pneumococcal Vaccination Yes Allergies/Adverse Reactions: Allergies No Known Allergies Allergy (Verified 12/14/16 09:43) Home Medications: HOME MEDICATIONS Albuterol Sulfate [Proventil Hfa] 6.7 gm IH BID 12/14/16 [Last Taken Unknown] Acetaminophen [Tylenol] 650 mg PO QID PRN #0 tablet 12/18/16 [Last Taken Unknown ] Enalapril Maleate [Vasotec] 20 mg PO BID #60 tablet 12/18/16 [Last Taken Unknown ] Magnesium Hydroxide [Milk Of Magnesia] 30 ml PO TID PRN #1 bottle 12/18/16 [ Last Taken Unknown] Azithromycin 250 mg PO DAILY 4 Days #4 tablet 08/27/17 [Last Taken Unknown] Calcium Carbonate [Calcium] 500 mg PO DAILY 08/27/17 [Last Taken Unknown] Fluticasone/Salmeterol [Advair 250-50 Diskus] 1 puff IH BID 08/27/17 [Last Taken Unknown] predniSONE [Prednisone] 20 mg PO DAILY #12 tablet 08/27/17 [Last Taken Unknown] - History of Present Ilness Narrative: States over the past few days has started having a nonproductive cough with dyspnea that is now cause some muscle aches especially in the diaphragm. Denies any CP, nausea. States his throat has been sore. Had pneumonia 9 months ago requiring hospitalization. Date (Duration): 08/24/17 Timing: getting worse Severity: moderate Frequency/Possible Cause: Reports: occasional episodes, other - History of asthma complications. Modifying Factors - Improves: Reports: albuterol Modifying Factors - Worsens: Reports: coughing Associated Symptoms: Reports: shortness of breath, wheezing, nasal congestion Review of Systems - Narrative Narrative: See HPI - Review of Systems Constitutional: Present: chills, fatigue, other - "loosing his voice" cough ENT: Present: nasal drainage, sore throat Respiratory: Present: shortness of breath, cough, wheezing, other Cardiology: Present: no symptoms reported Gastrointestinal/Abdominal: Present: no symptoms reported Musculoskeletal: Present: other - Muscle aches especially in the diaphragm when coughing. Skin: Present: no symptoms reported Neurological: Present: no symptoms reported Endocrine: Present: no symptoms reported Hematologic/Lymphatic: Present: no symptoms reported Psych: Present: no symptoms reported - Patient's Past Medical History Patient History - Medical: No pertinent hx Patient History - Cardiac/Respiratory: Asthma, Hypertension Patient History - Cancer: No Hx of Cancer Patient History - Surgical Procedures: Other Patient History - Other: None - Family History Mother Family History - Medical: No pertinent hx Father Family History - Cardiac/Respiratory: Asthma Family History - Cancer: Prostate Sister Family History - Cardiac/Respiratory: COPD - Social History Living Situations: spouse Abuse History: No History of abuse Psych History: No pertinent hx Smoking Status: Current every day smoker Have you smoked in the past 12 months: Yes Do you dip or chew tobacco: No Alcohol Use: rarely Drug Use: none - Immunizations Immunizations Up to Date: Yes Hx Pneumococcal Vaccination: Yes History of Influenza Vaccine: Yes Physical Exam - Physical Exam Narrative: Appears ill but not toxic. General Appearance: Present: wd/wn, alert, mild distress Head Exam: Present: normal inspection, no evidence of injury Eye Exam: Normal inspection: bilateral, PERRL: bilateral, EOMI: bilateral Ears, Nose, Throat: Present: pharyngeal erythema Neck: Present: normal inspection, nontender, full range of motion, lymphadenopathy (R) Respiratory: Present: no accessory muscle use, chest nontender, wheezing, other - Nonproductive cough Cardiovascular/Chest: Present: regular rate, rhythm, no murmur, normal peripheral pulses Peripheral Pulses: N=norm/S=strong/W=weak/B=bound/A=absent: Radial (R): Normal, Radial (L): Normal Gastrointestinal/Abdominal: Present: normal bowel sounds, nontender, nondistended, soft Back Exam: Present: no CVA tenderness, no vertebral tenderness Extremity Exam: Present: normal inspection, non-tender, normal range of motion Neurological Exam: Present: alert, oriented, normal mood/affect, no motor/ sensory deficits Skin Exam: Present: normal color, warm/dry ED Progress - Results and Orders Patient's Lab Results:: I have reviewed the patient's lab results. - Vital Signs Patient's Vital Signs:: I have reviewed the patient's vital signs. Vital Signs: Vital Signs 08/27/17 20:22 Temperature 36.8 C Pulse Rate 63 Respiratory 18 Rate Blood Pressure 157/78 O2 Sat by Pulse 99 Oximetry - X-Ray cxr X-Ray: chest Interpretation: Interp. by me, Reviewed by me X-ray Comments: No acute findings. - Progress/Reassessment Chief Complaint: Cough Progress:: Improved Progress Note-Subjective: 08/27/17 21:56 States he is breathing better after the breathing treatment and the steroid. Departure Clinical Impression: Bronchitis Asthma Qualifiers: Asthma severity: moderate Asthma persistence: persistent Asthma complication type: with acute exacerbation Qualified Code(s): J45.41 - Moderate persistent asthma with (acute) exacerbation - Departure Disposition: Home Follow Up Needed Condition: Stable Additional Instructions: Believe you have bronchitis with complications of asthma. Will place you on a course of prednisone daily along with azithromycin. Also take your albuterol neb treatments up to every 2 hrs at home if needed. Follow up with family provider in the next 2-3 days. Especially if you worsen or do not improve. I would suspect you will not see great improvement until Monday sometime but you should not worsen. If you worsen return to ER. Referrals: Fernando Lemus MD [Primary Care Provider] - Prescriptions: Azithromycin 250 mg PO DAILY 4 Days #4 tablet predniSONE [Prednisone] 20 mg PO DAILY #12 tablet
[2017-08-27] MEDS ORDERED: METHYLPREDNISOLONE SOD SUCC/PF 40 MG/ML VIAL ONE (21:01)
[2017-08-27] MEDS ORDERED: ALBUTEROL SULFATE 2.5 MG/0.5 ML VIAL.NEB IH ONE (21:01)
[2017-08-27 21:06] LABS: Hematocrit 40.7 % (42.0-52.0); Hemoglobin 14.3 gm/dL (13.5-18.0); Mean Corpuscular Hemoglobin 33.7 pg (27-31); Mean Corpuscular Hgb Conc 35.1 g/dl (32-36); Mean Platelet Volume 9.8 fl (6.0-9.5); Neutrophil % 41.6 % (42-75.0); Platelet Count 230 K/mm3 (150-450); Red Blood Count 4.24 M/mm3 (4.7-6.0); Red Cell Distribution Width 13.3 % (11.5-14.0); White Blood Count 9.6 K/mm3 (4.0-10.5)
[2017-08-27 21:21] LABS: Albumin * 4.1 gm/dl (3.4-5.0); Anion Gap 9.8 mmol/L (6.8-13.8); BUN/Creatinine Ratio 12.3 (9.0-21.6); Bilirubin, Total 0.3 mg/dL (0.0-1.1); Ca. Corrected For Albumin 8.5 mg/dL (8.4-10.2); Calcium * 8.9 mg/dL (7.9-10.9); Carbon Dioxide 29.1 mmol/L (24-32.6); Potassium 3.9 mmol/L (3.4-4.6); Total Protein 7.2 gm/dL (6.2-8.2)
[2017-08-27] MEDS ORDERED: AZITHROMYCIN 250 MG TABLET PO ONE (21:55)
[2017-08-27] MEDS ORDERED: AZITHROMYCIN 250 MG TABLET ONE (22:08)
[2017-08-27 22:13] VITALS: BP 151/73
== END 2017-08-27 22:12 | disposition home or self-care (01) ==
LOC: ER 20:17
DX: J45.41 Moderate persistent asthma with (acute) exacerbation (principal); J40 Bronchitis, not specified as acute or chronic; I10 Essential (primary) hypertension; F17.200 Nicotine dependence, unspecified, uncomplicated